=== PATIENT | female | born 1990 | race Caucasian/White ===

== ENCOUNTER 2021-06-14 07:38 | Inpatient (IN) ==
[2021-06-14] MEDS ORDERED: OXYTOCIN 30 UNITS/500 ML BAG IV PRN ×3 (08:44→22:51)
--- NOTE | 2021-06-14 08:47 | History & Physical Report ---
Date of Service June 14, 2021 Assessment & Plan (1) Supervision of normal intrauterine in primigravida: Plan: coming in for IOL - A+, GBS+, RI. - Patient hooked up to monitor. - Pitocin ordered. Will continue to monitor progress. (2) Encounter for induction of labor: (3) Group B streptococcal carriage complicating : Plan: Positive GBS at 36 weeks - Penicillin ordered and will be started for GBS prophylaxis. Admission and Anticipated Discharge Date Admission Date: June 14, 2021 History of Present Illness Chief Complaint: IOL Primary Care Provider: BRUNA PCP at 38 weeks and 5 days confirmed via LMP. Here for induction of labor. Complications with this include GDM (at 28 weeks with glucola test) and CHTN on baby aspirin daily. Has been attending OB appointments regularly. Currently taking baby aspirin, vitamin, ferrous sulfate, docusate sodium. Contractions: No contractions felt by patient. Fluid or blood loss: movement: active Allergies Allergy/AdvReac Type Severity Reaction Status Date / Time Pertussis Vaccines Allergy Hives Verified 06/15/21 04:02 Home Medications Medication Instructions Recorded Confirmed Type aspirin 81 mg tablet 81 mg PO DAILY 06/13/21 06/14/21 History docusate sodium 50 mg capsule 50 mg PO DAILY 06/13/21 06/14/21 History ferrous sulfate 325 mg (65 mg 325 mg PO DAILY 06/13/21 06/14/21 History iron) tablet (Iron (ferrous sulfate)) prenat.vits,joey,psa-rtkh-yrjje 1 tab PO DAILY 06/13/21 06/14/21 History Patient History Medical History White coat syndrome with hypertension Surgical History S/P wisdom tooth extraction Family History Grandfather Diabetes Social History Smoking Status: Never smoker Second Hand Exposure: No; Hx Alcohol Use: No Hx Substance Use: No Preferred Language: Canadian Communication Ability: Effective Family Independence Case Manager Required: No Beliefs That Will Affect Care: None marital status: marital status details: Sudhir (32) [phone] Current Living Situation: Spouse Current Living Situation Comment: lives with spouse, no pets current occupational status: unemployed Other Information That Helps Us Care for You: No Feels Safe at Home: Yes Assistive Devices: None OB History History of one aborted . Review of Systems Denies fever, chills, sweats Denies shortness of breath, difficulty breathing, chest pain, palpitations, chest pressure. Denies breast pain. Denies dysuria. Denies headache or changes in vision. Physical Exam Physical Exam: Dilation: 4.0 Effacement: 70 Station: -3 Baseline: 150's Accelerations present, no decelerations Contractions mild spaced 5 minutes apart. Constitutional: WD/WN, vitals as above well developed and well nourished Respiratory: normal respiratory effort, lungs clear to auscultation Cardiovascular: Rate/Rhythm: regular rate and regular rhythm Heart Sounds: normal S1 and normal S2 Results & Data ([facility]) Vital Signs (Past 12 Hours) Vital Signs Temp Pulse Resp BP 06/14/21 08:07 108 H 137/78 06/14/21 07:55 36.4 C L 114 H 18 152/84 H 06/14/21 07:52 114 H 152/84 H Laboratory Results - A+ - GBS+ - Antibody screen - - HCT/Hgb 36.7/13 - WBC 18.25 - Plt 230 - Rubella Immune - HIV- - HbSAg- Resident Activity Tracking Resident Involvement: Resident Care Provided Care Provided: OB Delivery
[2021-06-14] MEDS ORDERED: PENICILLIN G POTASSIUM 6 MU in DEXTROSE 5% 250 ML IV STA (08:57)
[2021-06-14 09:08] LABS: Hematocrit (blood only) 36.7 % (37-47); Mean Corpuscular Hemoglobin 34.3 pg (25-34); Mean Corpuscular Hgb Conc 35.4 g/dL (32-36); Mean Corpuscular Volume 96.8 fL (80-100); Mean Platelet Volume 9.8 fL (7.4-10.4); Platelet Count 230 K/uL (130-400); RDW Coefficient of Variation 13.6 % (11.5-14.5); RDW Standard Deviation 47.9 fL (36.4-46.3); Red Blood Count 3.79 M/uL (4.2-5.4); White Blood Count 18.25 K/uL (4.8-10.8)
[2021-06-14] MEDS: LACTATED RINGER'S 1,000 ML IV PRN ×3 (09:08→17:28)
[2021-06-14] MEDS: PENICILLIN G POTASSIUM 3 MU in DEXTROSE 5% 100 ML IV PRN ×3 (13:20→21:23)
[2021-06-14] MEDS ORDERED: fentaNYL citrate 100 MCG/2 ML VIAL ONE (13:38)
[2021-06-14] MEDS ORDERED: BUPIVACAINE 0.25% 30 ML VIAL ONE (13:38)
[2021-06-14] MEDS ORDERED: ePHEDrine sulfate 50 MG/ML AMP ONE (13:38)
[2021-06-14] MEDS ORDERED: SODIUM CHLORIDE 0.9% INJ 10 ML VIAL ONE (13:38)
[2021-06-14] MEDS ORDERED: fentaNYL 2MCG/ML ROPIVACAINE 1.25MG/ML 100 ML BAG EPI ONE (13:39)
--- NOTE | 2021-06-14 22:29 | Delivery Summary ---
Vaginal Delivery Summary Date of Service June 14, 2021 Patient was induced for chronic hypertension according to guidelines he is just shy of 39 weeks first baby she was given a Barnes in her cervix the night before and Pitocin was started group B strep prophylaxis was provided Pitocin was started artificial rupture of membranes after adequate penicillin was given patient then progressed to fully dilated and pushed delivering over a first- degree tear with clear fluid there was a loose nuchal cord passed over the baby's head mouth and nares suctioned gentle traction the baby no excessive force live vigorous female cord clamped and cut cord gases obtained cord blood obtained placenta removed with gentle traction IV Pitocin started uterine tone improved first-degree tear repaired with 3-0 Vicryl sponge and instrument counts were correct estimated blood loss 250 mL Vaginal Delivery Summary and 1st Degree LAC [facility] Vaginal Delivery Charge Vaginal Delivery Codes: 24246 global code for the antepartum, delivery, and post- Delivery Type Details: and 1st Degree LAC Procedure Anesthesia type: Epidural Labor Stage Duration Labor - Stage 1 Duration: 2.66
[2021-06-14] MEDS ORDERED: DIPHTHERIA/TETANUS/PERTUSSIS 0.5 ML SYR/VIAL IM ONE (22:51)
[2021-06-14] MEDS ORDERED: HYDROCORTISONE ACETATE 25 MG SUPP PR PRN (22:51)
[2021-06-14] MEDS ORDERED: ACETAMINOPHEN 325 MG TAB PO PRN (22:51)
[2021-06-14] MEDS ORDERED: BENZOCAINE 20% AER SPR 82.5 GM CAN EXT PRN (22:51)
[2021-06-14] MEDS ORDERED: SUPERCREAM 0.870% 15 GM JAR EXT PRN (22:51)
[2021-06-14] MEDS ORDERED: bisacodyL 10 MG SUPP PR PRN (22:51)
[2021-06-14] MEDS ORDERED: oxyCODONE/ACETAMINOPHEN 5mg/325mg TAB PO PRN (22:51)
[2021-06-14 22:54] LABS: Base Excess Cord Arterial Bld -5.3 mEq/L (-9-1.8); CO2 Cord Arterial Blood 60 mmHg (39.1-73.5); HCO3 Cord Arterial Blood 24 mmol/L (19.7-28.5); PO2 Cord Arterial Blood 24 mmHg (4.1-31.7); pH Cord Arterial Blood 7.22 (7.1-7.38)
[2021-06-14 22:55] LABS: Base Excess Cord Venous Blood -3.5 mEq/L (-7.7-1.9); Cord Venous Blood HCO3 20 mmol/L (18.4-26.8); Cord Venous Blood PCO2 34 mmHg (30.4-57.2); Cord Venous Blood PO2 36 mmHg (14.1-43.3); Cord Venous Blood pH 7.39 (7.20-7.44)
[2021-06-14 22:56] LABS: Oxygen Sat Cord Arterial Blood < 60.0 % (<60)
--- NOTE | 2021-06-15 00:01 | Anesthesiology Progress Note ---
Date of Service June 15, 2021 Anesthesia Post Procedure Vital Signs Vital Signs: Temp Pulse Resp BP Pulse Ox 06/14/21 23:54 110 H 133/71 06/14/21 23:39 105 H 127/64 06/14/21 23:23 98 H 18 130/67 06/14/21 23:08 112 H 18 118/65 06/14/21 22:54 99 H 18 119/59 L 06/14/21 22:42 108 H 132/61 06/14/21 22:39 18 06/14/21 22:32 102 H 95 06/14/21 22:27 100 H 96 06/14/21 22:24 100 H 18 135/72 06/14/21 22:22 106 H 97 06/14/21 22:17 106 H 98 06/14/21 22:12 120 H 97 06/14/21 22:07 119 H 96 06/14/21 22:05 116 H 133/58 L 06/14/21 22:02 123 H 97 06/14/21 21:57 102 H 95 06/14/21 21:52 107 H 94 06/14/21 21:47 103 H 97 06/14/21 21:42 151 H 96 06/14/21 21:37 104 H 97 06/14/21 21:34 114 H 143/64 H 06/14/21 21:32 132 H 96 06/14/21 21:28 113 H 88 L 06/14/21 21:27 116 H 95 06/14/21 21:22 154 H 97 06/14/21 21:17 131 H 97 06/14/21 21:12 112 H 97 06/14/21 21:07 148 H 96 06/14/21 21:06 122 H 186/72 H 06/14/21 21:02 142 H 87 L 06/14/21 21:01 36.7 C 18 06/14/21 20:57 118 H 92 06/14/21 20:52 106 H 98 06/14/21 20:49 98 H 144/80 H 06/14/21 20:47 98 H 98 06/14/21 20:42 109 H 99 06/14/21 20:37 106 H 99 06/14/21 20:34 96 H 16 136/76 06/14/21 20:32 104 H 99 06/14/21 20:27 99 H 98 06/14/21 20:22 95 H 98 06/14/21 20:19 97 H 133/74 06/14/21 20:17 98 H 98 06/14/21 20:12 106 H 98 06/14/21 20:07 109 H 98 06/14/21 20:04 93 H 131/77 06/14/21 20:02 102 H 99 06/14/21 19:57 102 H 98 06/14/21 19:52 100 H 98 06/14/21 19:49 99 H 128/75 06/14/21 19:47 96 H 99 06/14/21 19:42 101 H 98 06/14/21 19:37 107 H 99 06/14/21 19:35 105 H 129/81 06/14/21 19:32 118 H 98 06/14/21 19:27 93 H 97 06/14/21 19:22 100 H 98 06/14/21 19:19 93 H 123/60 06/14/21 19:17 99 H 98 06/14/21 19:12 94 H 96 06/14/21 19:07 93 H 98 06/14/21 19:04 112 H 127/57 L 06/14/21 19:02 36.9 C 94 H 18 97 06/14/21 19:01 36.9 C 18 06/14/21 19:00 20 06/14/21 18:57 95 H 97 06/14/21 18:52 94 H 98 06/14/21 18:49 95 H 131/72 06/14/21 18:47 98 H 98 06/14/21 18:42 86 99 06/14/21 18:37 89 99 06/14/21 18:34 95 H 133/72 06/14/21 18:32 88 99 06/14/21 18:30 20 06/14/21 18:27 89 98 06/14/21 18:22 87 98 06/14/21 18:19 80 122/72 06/14/21 18:17 84 98 06/14/21 18:12 83 98 06/14/21 18:07 85 99 06/14/21 18:02 85 100 06/14/21 18:00 18 06/14/21 17:57 90 99 06/14/21 17:52 91 H 99 06/14/21 17:49 87 124/68 06/14/21 17:47 93 H 98 06/14/21 17:42 88 99 06/14/21 17:37 80 99 06/14/21 17:35 82 120/60 06/14/21 17:34 84 123/60 06/14/21 17:32 87 99 06/14/21 17:30 20 06/14/21 17:27 89 98 06/14/21 17:22 93 H 99 06/14/21 17:19 75 119/63 06/14/21 17:17 81 98 06/14/21 17:12 72 97 06/14/21 17:07 74 97 06/14/21 17:04 75 125/70 06/14/21 17:02 78 98 06/14/21 17:00 18 06/14/21 16:57 79 98 06/14/21 16:52 94 H 98 06/14/21 16:49 70 115/58 L 06/14/21 16:47 65 96 06/14/21 16:42 66 95 06/14/21 16:37 63 95 06/14/21 16:34 67 111/61 06/14/21 16:32 65 96 06/14/21 16:30 18 06/14/21 16:27 62 96 06/14/21 16:22 64 96 06/14/21 16:18 69 113/57 L 06/14/21 16:17 69 96 06/14/21 16:14 63 115/58 L 06/14/21 16:12 68 95 06/14/21 16:08 70 114/56 L 06/14/21 16:07 65 96 06/14/21 16:03 76 113/58 L 06/14/21 16:02 75 97 06/14/21 16:00 20 06/14/21 15:58 67 112/59 L 06/14/21 15:57 74 96 06/14/21 15:53 75 111/59 L 06/14/21 15:52 73 96 06/14/21 15:50 77 116/61 06/14/21 15:47 78 97 06/14/21 15:44 68 108/57 L 06/14/21 15:42 79 98 06/14/21 15:39 82 115/68 06/14/21 15:37 78 97 20/ 15:34 88 108/59 L 06/14/21 15:32 69 97 06/14/ 15:30 20 20/ 15:28 73 110/59 L 06/14/ 15:27 72 97 20/21 15:24 81 114/62 20/21 15:22 80 97 20 15:18 79 112/61 20/ 15:17 81 98 06/14/21 15:12 75 97 20/ 15:11 82 110/61 20/21 15:10 81 111/61 20/21 15:07 71 110/60 98 06/14/21 15:06 37.0 C 75 18 111/66 06/14/21 15:04 73 116/63 20/21 15:02 78 97 06/14/21 15:01 68 114/60 20/21 15:00 68 115/61 20/ 14:57 74 118/68 97 06/14/21 14:55 73 112/63 20/21 14:54 70 114/64 20/21 14:52 92 H 97 06/14/21 14:51 76 112/62 20/21 14:49 76 112/64 20/ 14:47 71 117/64 97 20/21 14:45 80 119/65 20/21 14:43 78 18 120/63 20/21 14:42 71 117/62 97 20/21 14:40 72 18 129/66 20/21 14:37 90 18 123/68 97 20/21 14:35 81 18 120/65 20/21 14:33 81 18 121/63 20/21 14:32 78 96 20/21 14:31 81 18 120/66 20/21 14:29 83 18 123/65 20/21 14:28 81 18 117/64 20/21 14:27 80 97 20/21 14:25 84 18 123/64 20/21 14:24 83 18 121/65 20/21 14:22 81 18 128/83 98 20/ 14:19 85 18 145/87 H 06/14/21 14:17 74 100 06/14/21 14:12 91 H 98 06/14/21 14:07 83 99 06/14/21 14:05 99 H 140/86 06/14/21 14:02 88 97 06/14/21 13:57 83 98 06/14/21 13:52 96 H 99 06/14/21 13:47 91 H 100 06/14/21 12:43 36.7 C 106 H 20 146/82 H 06/14/21 12:42 20 06/14/21 11:46 97 H 18 138/84 06/14/21 10:54 90 119/65 06/14/21 10:52 36.9 C 20 06/14/21 10:23 93 H 114/60 06/14/21 09:08 117 H 136/87 06/14/21 08:07 108 H 137/78 06/14/21 07:55 36.4 C L 114 H 18 152/84 H 06/14/21 07:52 114 H 152/84 H Notes Mental Status: alert / awake / arousable Nausea / Vomiting: adequately controlled Pain: adequately controlled Airway Patency, RR, SpO2: stable & adequate BP & HR: stable & adequate Hydration State: stable & adequate Neuraxial Anesthesia: was administered and sensory block is resolving Anesthetic Complications: no major complications apparent and Pt Satisfied with anesthetic care
--- NOTE | 2021-06-15 00:02 | Anesthesiology Consultation ---
Date of Service June 15, 2021 Assessment & Plan (1) Encounter for pre-operative examination: Chart Review Chart Review: Patient NOT seen in Pre Admission Testing and Acceptable Risk for Labor Epidural Consults Requested none ASA ASA2 Proposed Anesthesia Anesthesia Type: CSE Risk / Benefits Reviewed With: PT / POA / Parent / Guardian, Accepts Plan and Informed Consent Obtained History Height/Weight Height: 5 ft 3 in Weight: 71.668 kg Allergies Allergy/AdvReac Type Severity Reaction Status Date / Time No Known Allergies Allergy Verified 05/23/21 13:00 Medications Home Medications Medication Instructions Recorded Confirmed Last Taken aspirin 81 mg tablet 81 mg PO DAILY 06/13/21 06/14/21 06/13/21 08:00 docusate sodium 50 mg capsule 50 mg PO DAILY 06/13/21 06/14/21 06/13/21 08:00 ferrous sulfate 325 mg (65 mg 325 mg PO DAILY 06/13/21 06/14/21 06/13/21 08:00 iron) tablet (Iron (ferrous sulfate)) prenat.vits,joey,[id number] 1 tab PO DAILY 06/13/21 06/14/21 06/13/21 08:00 Past Medical History Medical History White coat syndrome with hypertension Exercise / Class Metabolic Activity II 4-5 Yardwork/Stairs/Walk up hill Past Family History Family History Grandfather Diabetes Past Surgical History Surgical History S/P wisdom tooth extraction Past Anesthesia History No Hx of Anesthesia Complications and No Family Hx of Anesthesia Complications History of PONV No Hx of PONV and No Hx of Motion Sickness Social History Smoking Status: Never smoker Hx Alcohol Use: No Hx Substance Use: No substance use type: does not use Physical Exam Vital Signs Last Vital Signs Temp 36.7 C 06/14/21 21:01 Pulse 110 H 06/14/21 23:54 Resp 18 06/14/21 23:23 BP 133/71 06/14/21 23:54 Pulse Ox 95 06/14/21 22:32 ENMT Mouth: no dentition abnormality Thyromental Distance: > or= 3.5 Finger Breadths Mallampati Class: II Neck normal visual inspection Respiratory normal respiratory effort Auscultation: lungs clear to auscultation bilaterally Cardiovascular Rate/Rhythm: regular rate and regular rhythm Psychiatric Orientation: alert Testing Laboratory Results 06/14/21 08:58
--- NOTE | 2021-06-15 06:05 | Obstetrical Progress Note ---
Date of Service <Alberto Villalobos DO - Last Filed: 06/15/21 07:24> June 15, 2021 Assessment & Plan <Alberto Villalobos DO - Last Filed: 06/15/21 07:24> (1) Encounter for care and examination after delivery: PPD1 - A+, GBS+, RI - Received penicillin for GBS prior to delivery - Vitals WNL. - Encourage - Continue to monitor until patient ready to leave. (2) Gestational diabetes mellitus (GDM) affecting , antepartum: (3) Chronic hypertension affecting : (4) Group B streptococcal carriage complicating : <Jeannie Bojorquez MD, FACOG - Last Filed: 06/15/21 07:30> (1) Encounter for care and examination after delivery: (2) Gestational diabetes mellitus (GDM) affecting , antepartum: (3) Chronic hypertension affecting : (4) Group B streptococcal carriage complicating : Subjective <Alberto Villalobos DO - Last Filed: 06/15/21 07:24> Ambulation: ambulating normally Voiding: no voiding problems Passing Gas:: Yes Diet Tolerance:: regular diet Lochia:: Small Feeding Type:: breast feeding Current Pain Level(1-10): 2 (from stitches) Review of Systems Denies fever, chills, sweats Denies shortness of breath, difficulty breathing, chest pain, palpitations, chest pressure. Denies breast pain. Denies dysuria. Denies headache or changes in vision Physical Exam <Alberto Villalobos DO - Last Filed: 06/15/21 07:24> General: Alert, oriented. No acute distress. Cardiac: Regular rate and rhythm, no murmurs/rubs/gallops. Respiratory: Clear to auscultation bilaterally a/p, no wheezes/rales/rhonchi. No increased work of breathing. Symmetrical chest rise. No respiratory distress. Abdomen: Soft, nontender, nondistended. Bowel sounds present. Uterus: Uterine fundus firm, palpable 1 cm below umbilicus. Lower Extremities: No lower extremity edema or swelling. No deep calf pain. Landy's negative bilaterally Results & Data ([facility]) <Alberto Villalobos DO - Last Filed: 06/15/21 07:24> Vital Signs (Past 12 Hours) Vital Signs Temp Pulse Pulse Resp BP BP Pulse Ox 06/15/21 03:35 36.9 C 94 H 18 130/82 97 06/15/21 01:00 36.9 C 94 H 18 130/82 06/15/21 00:23 36.3 C L 99 H 18 128/58 L 06/15/21 00:09 112 H 127/59 L 06/14/21 23:54 110 H 18 133/71 06/14/21 23:39 105 H 127/64 06/14/21 23:23 98 H 18 130/67 06/14/21 23:08 112 H 18 118/65 06/14/21 22:54 99 H 18 119/59 L 06/14/21 22:42 108 H 132/61 06/14/21 22:39 18 06/14/21 22:32 102 H 95 06/14/21 22:27 100 H 96 06/14/21 22:24 100 H 18 135/72 06/14/21 22:22 106 H 97 06/14/21 22:17 106 H 98 06/14/21 22:12 120 H 97 06/14/21 22:07 119 H 96 06/14/21 22:05 116 H 133/58 L 06/14/21 22:02 123 H 97 06/14/21 21:57 102 H 95 06/14/21 21:52 107 H 94 06/14/21 21:47 103 H 97 06/14/21 21:42 151 H 96 06/14/21 21:37 104 H 97 06/14/21 21:34 114 H 143/64 H 06/14/21 21:32 132 H 96 06/14/21 21:28 113 H 88 L 06/14/21 21:27 116 H 95 06/14/21 21:22 154 H 97 06/14/21 21:17 131 H 97 06/14/21 21:12 112 H 97 06/14/21 21:07 148 H 96 06/14/21 21:06 122 H 186/72 H 06/14/21 21:02 142 H 87 L 06/14/21 21:01 36.7 C 18 06/14/21 20:57 118 H 92 06/14/21 20:52 106 H 98 06/14/21 20:49 98 H 144/80 H 21 20:47 98 H 98 06/14/21 20:42 109 H 99 06/14/21 20:37 106 H 99 06/14/21 20:34 96 H 16 136/76 06/14/21 20:32 104 H 99 06/14/21 20:27 99 H 98 06/14/21 20:22 95 H 98 06/14/21 20:19 97 H 133/74 06/14/21 20:17 98 H 98 06/14/21 20:12 106 H 98 06/14/21 20:07 109 H 98 06/14/21 20:04 93 H 131/77 06/14/21 20:02 102 H 99 06/14/21 19:57 102 H 98 06/14/21 19:52 100 H 98 06/14/21 19:49 99 H 128/75 06/14/21 19:47 96 H 99 06/14/21 19:42 101 H 98 06/14/21 19:37 107 H 99 06/14/21 19:35 105 H 129/81 06/14/21 19:32 118 H 98 06/14/21 19:27 93 H 97 06/14/21 19:22 100 H 98 06/14/21 19:19 93 H 123/60 06/14/21 19:17 99 H 98 06/14/21 19:12 94 H 96 06/14/21 19:07 93 H 98 06/14/21 19:04 112 H 127/57 L 06/14/21 19:02 36.9 C 94 H 18 97 06/14/21 19:01 36.9 C 18 06/14/21 19:00 20 06/14/21 18:57 95 H 97 06/14/21 18:52 94 H 98 06/14/21 18:49 95 H 131/72 06/14/21 18:47 98 H 98 06/14/21 18:42 86 99 21 18:37 89 99 06/14/21 18:34 95 H 133/72 06/14/21 18:32 88 99 20 18:30 20 06/14/21 18:27 89 98 06/14/21 18:22 87 98 06/14/21 18:19 80 122/72 06/14/21 18:17 84 98 06/14/21 18:12 83 98 06/14/21 18:07 85 99 <Jeannie Bojorquez MD, FACOG - Last Filed: 06/15/21 07:30> Co-Signing Physician Notes Resident Physician Supervision Note: I was present with Dr. Cash during the history and exam. I discussed the case with the resident and agree with the findings and plan as documented in the note. Any exceptions or clarifications are listed here: [None] Documented By: Jeannie Bojorquez MD, FACOG Resident Activity Tracking <Alberto Villalobos DO - Last Filed: 06/15/21 07:24> Resident Involvement: Resident Care Provided Care Provided: OB Delivery
[2021-06-15] MEDS: PRENATAL VITAMIN 1 TAB PO SCH (08:10)
[2021-06-15] MEDS: DOCUSATE SODIUM 100 MG CAP PO SCH ×2 (08:10→20:04)
[2021-06-15] MEDS: IBUPROFEN 600 MG TAB PO PRN ×3 (08:14→20:04)
--- NOTE | 2021-06-15 09:05 | Obstetrical Progress Note ---
Date of Service June 15, 2021 Assessment & Plan Admission and Anticipated Discharge Date Admission Date: June 14, 2021 Subjective Called to patient room to eval perineum. Patient delivered via last night, and during pericare this morning RN noticed purplish swelling of left labia. Patient is able to ambulate, rates pain 1-2/10. On exam, left labia majora is purple and swollen, approx 2-3cm in size. Right is not swollen. There is no extension of bruising into the thighs. Does not appear to extend into the vagina. Discussed with patient - this looks like labial swelling, will use cold compre ss/ice packs, will check H/H now and in 6h. Results & Data ([facility]) Vital Signs (Past 12 Hours) Vital Signs Temp Pulse Pulse Resp BP BP Pulse Ox 06/15/21 03:35 36.9 C 94 H 18 130/82 97 06/15/21 01:00 36.9 C 94 H 18 130/82 06/15/21 00:23 36.3 C L 99 H 18 128/58 L 06/15/21 00:09 112 H 127/59 L 06/14/21 23:54 110 H 18 133/71 06/14/21 23:39 105 H 127/64 06/14/21 23:23 98 H 18 130/67 06/14/21 23:08 112 H 18 118/65 06/14/21 22:54 99 H 18 119/59 L 06/14/21 22:42 108 H 132/61 06/14/21 22:39 18 06/14/21 22:32 102 H 95 06/14/21 22:27 100 H 96 06/14/21 22:24 100 H 18 135/72 06/14/21 22:22 106 H 97 06/14/21 22:17 106 H 98 06/14/21 22:12 120 H 97 06/14/21 22:07 119 H 96 06/14/21 22:05 116 H 133/58 L 06/14/21 22:02 123 H 97 06/14/21 21:57 102 H 95 06/14/21 21:52 107 H 94 06/14/21 21:47 103 H 97 06/14/21 21:42 151 H 96 06/14/21 21:37 104 H 97 06/14/21 21:34 114 H 143/64 H 06/14/21 21:32 132 H 96 06/14/21 21:28 113 H 88 L 06/14/21 21:27 116 H 95 06/14/21 21:22 154 H 97 06/14/21 21:17 131 H 97 06/14/21 21:12 112 H 97 06/14/21 21:07 148 H 96 06/14/21 21:06 122 H 186/72 H 06/14/21 21:02 142 H 87 L 06/14/21 21:01 36.7 C 18 PG Care Time/CCT Total # of Minutes Spent Total Time Spent with Patient: Total time spent is greater than 50% in coordination of care (as documented) at patient's floor/unit and/or counseling patient: Coding Level of Care Code None
[2021-06-15 09:21] LABS: Hematocrit (blood only) 32.8 % (37-47); Hemoglobin 11.5 g/dL (12.0-16.0)
[2021-06-15 15:07] LABS: Hematocrit (blood only) 30.6 % (37-47); Hemoglobin 10.5 g/dL (12.0-16.0)
[2021-06-15] MEDS ORDERED: bisacodyL 5 MG TABEC PO SCH (20:00)
[2021-06-16 00:44] VITALS: TEMP 98.2
[2021-06-16] MEDS: IBUPROFEN 600 MG TAB PO PRN ×2 (02:41→11:48)
[2021-06-16 06:22] LABS: Hematocrit (blood only) 30.6 % (37-47); Hemoglobin 10.5 g/dL (12.0-16.0)
[2021-06-16] MEDS: DOCUSATE SODIUM 100 MG CAP PO SCH (08:00)
[2021-06-16] MEDS: PRENATAL VITAMIN 1 TAB PO SCH (08:00)
--- NOTE | 2021-06-16 08:02 | Obstetrical Progress Note ---
Date of Service June 16, 2021 Assessment & Plan (1) Supervision of normal intrauterine in primigravida: Doing well PPD2. Labia stable. OK for DC home. Reviewed instructions. Followup 6w in office. Subjective Ambulation: ambulating normally Voiding: no voiding problems Diet Tolerance:: regular diet Lochia:: Moderate Review of Systems All systems reviewed & are unremarkable except as noted in HPI & below Physical Exam Labia same as yesterday - not worse. Left is swollen and bruised. No extension of bruising. Constitutional WD/WN, vitals as above no acute distress Respiratory normal respiratory effort Cardiovascular Rate/Rhythm: regular rate and regular rhythm Gastrointestinal (Abdomen) Inspection/Auscultation: abdomen normal to inspection; abdomen not distended Percussion/Palpation: abdomen soft Genitourinary OB Exam Abdomen: + fundal height Fundus: + firm; not tender Results & Data ([facility]) Vital Signs (Past 12 Hours) Vital Signs Temp Pulse Resp BP 06/15/21 23:35 36.8 C 78 16 114/74
[2021-06-16 09:15] VITALS: BP 116/73; PULSE 75; O2SAT 98
--- NOTE | 2021-06-27 11:50 | Coding Query ---
CODING QUERY To promote full compliance with coding requirements relating to patient care, provider participation is requested in all cases of construction administrator uncertainty. Please assist us with the question(s) below: Coding Question(s): 06/16 progress note mentions labial swelling post delivery. Please document diagnosis , if applicable for the swelling post delivery. Thanks for your help! Dhruv Michael [facility] Physician's Response(s): Labial swelling is pretty common post delivery, I do not have a diagnosis for this Principal Diagnosis: "that condition established after study, to be chiefly responsible for occasioning the admission of the patient to the hospital for care." Co-Existing Principal Diagnosis: "when two or more diagnoses equally meet the criteria for principal diagnosis as determined by the circumstances of admission, diagnostic work up, and/or therapy provided, and the Alphabetic Index, Tabular List, or another coding guideline does not provide sequencing direction, any one of the diagnoses may be sequenced first." "When the physician has documented what appears to be a current diagnosis in the body of the record, but has not included the diagnosis in the final diagnostic statement, the physician should be asked whether the diagnosis should be added." (Source Coding [facility] 2 QTR90. p3-4) [facility]
== END 2021-06-16 15:45 | disposition home or self-care (01) | DRG 807 ==
LOC: 4S1 07:38 → 4S2 06-15 01:28
DX: Z37.0 Single live birth; O24.429 Gestational diabetes mellitus in childbirth, unspecified control; O99.824 Streptococcus B carrier state complicating childbirth; O16.4 Unspecified maternal hypertension, complicating childbirth; Z3A.38 38 weeks gestation of pregnancy; Z79.82 Long term (current) use of aspirin; O69.81X0 Labor and delivery complicated by cord around neck, without compression, not applicable or unspecified; O70.0 First degree perineal laceration during delivery; Z88.7 Allergy status to serum and vaccine

== ENCOUNTER 2024-09-27 07:30 | Inpatient (IN) ==
[2024-09-27] MEDS ORDERED: LIDOCAINE 1% LOCAL 20 ML VIAL INFIL PRN (08:42)
[2024-09-27] MEDS ORDERED: OXYTOCIN 30 UNITS/NSS 30 UNITS/500 ML BAG IV PRN (08:42)
--- NOTE | 2024-09-27 08:58 | History & Physical Report ---
Date of Service September 27, 2024 Assessment & Plan (1) Chronic hypertension affecting : (2) Gestational diabetes mellitus (GDM) affecting , antepartum: Plan 33 yo at 39 wga presents for iol cHTN VSS Fetus cat 1 Labor - 35cc shah placed, pt tolerated well. Pit to start A1GDM - BG q4 GBS neg epidural prn Admission and Anticipated Discharge Date Admission Date: September 27, 2024 History of Present Illness Chief Complaint: IOL Primary Care Provider: Bianca Roca MD 33 yo at 39 wga presents for IOL for cHTN no meds. +FM; denies ctx, LOF, VB PNI: cHTN A1GDM Past company secretary hx: G1 2019 SAB G2 2020 G3 current denies hx stis Allergies Allergy/AdvReac Type Severity Reaction Status Date / Time Pertussis Vaccines Allergy Severe Anaphylaxis Verified 09/26/24 15:02 Home Medications Medication Instructions Recorded Confirmed Type prenat.vits,joey,umg-[id number]-apidn 1 tab PO DAILY 06/13/21 09/27/24 History doxylamine succinate [Unisom 25 mg PO DAILY 02/17/24 09/27/24 History (doxylamine)] docusate sodium [Colace] 100 mg PO DAILY 03/02/24 09/27/24 History famotidine [Pepcid] 1 tab PO DAILY PRN Constipation 03/02/24 09/27/24 History acetone (urine) test (Ketone Urine #50 ea 03/11/24 09/26/24 Rx Test strips) blood sugar diagnostic (OneTouch #150 ea 03/11/24 09/26/24 Rx Verio test strips) blood-glucose meter (OneTouch #1 ea 03/11/24 09/26/24 Rx Verio Reflect Meter) lancets 33 gauge (OneTouch Delica #150 ea 03/11/24 09/26/24 Rx Plus Lancet) breast pump #1 ea 06/15/24 09/26/24 Rx aspirin 81 mg capsule 81 mg PO DAILY 09/23/24 09/27/24 History polyethylene glycol 3350 17 gram 17 g PO DAILY 09/23/24 09/27/24 History oral powder packet (Miralax) Patient History Medical History (Updated 09/23/24 @ 08:23 by Nisha Huston RN) Eczema H/O acne White coat syndrome with hypertension Surgical History S/P wisdom tooth extraction Family History Grandfather Diabetes Social History (Updated 02/17/24 @ 14:21 by Elvi Lopez, CHIDI) Smoking Status: Never smoker Second Hand Exposure: No; Do You Dip or Chew Tobacco: No; Hx Alcohol Use: No Hx Substance Use: No Preferred Language: Yoruba Communication Ability: Effective Vehicle Safety Inspector Required: No Beliefs That Will Affect Care: None marital status: marital status details: Sudhir Mullen (34) [phone] Current Living Situation: Spouse and Family Current Living Situation Comment: lives with spouse and child, no pets current occupational status: employed current occupation: physical therapist Other Information That Helps Us Care for You: No Feels Safe at Home: Yes Safety Concerns: Feels Safe At This Time Assistive Devices: None Physical Exam Genitourinary: OB Exam Abdomen: + vertex and + estimated weight (6-7) Manual OB Exam: + cervical dilation 2 cm, + cervical effacement 50% and + station -2 OB Exam Monitor Tracing: + external FHT monitor used, + external uterine monitor used and + category I (150/mod/+accel/-decel) Results & Data Vital Signs (Past 12 Hours) Vital Signs Temp Pulse Resp BP 09/27/24 08:13 98.4 F 09/27/24 07:44 123 H 143/88 H 09/27/24 07:43 18 Laboratory Results OB Labs: Blood Type A Positive 03/03/24 Antibody Screen NEGATIVE 03/03/24 Hgb 12.3 g/dl (12.0-16.0) 07/13/24 Hct 35.2 % (37.0-47.0) L 07/13/24 MCV 93.0 fL (80.0-100.0) 03/03/24 Plt Count 307 K/uL (130-400) 03/03/24 VZV IgG Antibody 446.30 index 01/06/23 Rubella IgG Antibody Immune (Immune) 03/03/24 RPR Nonreactive (Nonreactive) 03/03/24 Treponema pallidum Ab Negative (Negative) 07/13/24 Hep Bs Antigen NON-REACTIVE (NON-REACTIVE) 03/03/24 Hepatitis C Ab (EIA) NON-REACTIVE (NON-REACTIVE) 03/03/24 HIV (1&2) Ag & Ab Conf NON-REACTIVE (NON-REACTIVE) 03/03/24 Maternal Serum AFP 37.5 ng/mL 04/20/24 OB Optional Labs: Chlamydia trachomatis RNA Not Detected (NotDetected) 03/02/24 Neisseria gonorrhoeae RNA Not Detected (NotDetected) 03/02/24 Alpha Fetoprotein Triple Screen SEE NOTE 04/20/24 Labs Reviewed: CF/SMA- 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
[2024-09-27 09:01] LABS: Hematocrit (blood only) 37.6 % (37.0-47.0); Hemoglobin 13.2 g/dl (12.0-16.0); Mean Corpuscular Hemoglobin 34.4 pg (25.0-34.0); Mean Corpuscular Hgb Conc 35.1 g/dL (32.0-36.0); Mean Corpuscular Volume 97.9 fL (80.0-100.0); Platelet Count 230 K/uL (130-400); RDW Coefficient of Variation 13.1 % (11.5-14.5); RDW Standard Deviation 47.2 fL (36.4-46.3); Red Blood Count 3.84 M/uL (4.20-5.40); White Blood Count 15.86 K/ul (4.8-10.8)
[2024-09-27] MEDS: LACTATED RINGER'S 1,000 ML IV SCH (09:35)
[2024-09-27] MEDS: OXYTOCIN 30 UNITS/NSS 30 UNITS/500 ML BAG IV PRN (09:38)
[2024-09-27] MEDS: FAMOTIDINE 20 MG TAB PO SCH (09:54)
[2024-09-27] MEDS ORDERED: BUPIVACAINE 0.25% PF 30 ML VIAL EPI PRN (13:24)
[2024-09-27] MEDS ORDERED: fentaNYL citrate PF 100 MCG/2 ML VIAL EPI PRN (13:24)
[2024-09-27] MEDS ORDERED: fentANYL 2 MCG/ML BUPIVacaine 0.125%-NSS 100ML BAG EPI PRN (13:24)
[2024-09-27] MEDS ORDERED: NALBUPHINE HCL INJ 10 MG/ML AMP IV PRN (13:24)
[2024-09-27] MEDS ORDERED: LIDOCAINE 2% MPF LOCAL 5 ML VIAL EPI PRN (13:24)
[2024-09-27] MEDS ORDERED: NALOXONE HCL 1 MG in SODIUM CHLORIDE 0.9% 1,000 ML IV PRN (13:24)
[2024-09-27] MEDS ORDERED: diphenhydrAMINE 50 MG/ML VIAL IV PRN (13:24)
[2024-09-27] MEDS ORDERED: SODIUM CHLORIDE 0.9% PF INJ 10 ML VIAL EPI PRN (13:24)
[2024-09-27] MEDS ORDERED: ePHEDrine sulfate 50 MG/ML AMP IV PRN (13:24)
[2024-09-27] MEDS ORDERED: ROPIVACAINE 0.5% PF 5 MG/ML 20 ML VIAL EPI PRN (13:24)
[2024-09-27] MEDS ORDERED: NALOXONE HCL 0.4 MG/1 ML VIAL/CARP IV PRN (13:24)
[2024-09-27] MEDS ORDERED: ONDANSETRON INJ 2 MG/ML 2 ML VIAL IV PRN (13:24)
--- NOTE | 2024-09-27 13:25 | Anesthesiology Consultation ---
Date of Service September 27, 2024 Assessment & Plan (1) Encounter for pre-operative examination: Chart Review Chart Review: Patient NOT seen in Pre Admission Testing and Acceptable Risk for Labor Epidural Consults Requested none History Height/Weight Height: 5 ft 2 in Weight: 66.723 kg Allergies Allergy/AdvReac Type Severity Reaction Status Date / Time Pertussis Vaccines Allergy Severe Anaphylaxis Verified 09/26/24 15:02 Medications Home Medications Medication Instructions Recorded Confirmed Last Taken prenat.vits,joey,dpi-rodv-zjgdf 1 tab PO DAILY 06/13/21 09/27/24 09/25/24 20:00 doxylamine succinate [Unisom 25 mg PO DAILY 02/17/24 09/27/24 09/26/24 19:00 (doxylamine)] docusate sodium [Colace] 100 mg PO DAILY 03/02/24 09/27/24 09/26/24 08:00 famotidine [Pepcid] 1 tab PO DAILY PRN Constipation 03/02/24 09/27/24 09/26/24 08:00 acetone (urine) test (Ketone Urine #50 ea 03/11/24 09/26/24 Unknown Test strips) blood sugar diagnostic (OneTouch #150 ea 03/11/24 09/26/24 Unknown Verio test strips) blood-glucose meter (OneTouch #1 ea 03/11/24 09/26/24 Unknown Verio Reflect Meter) lancets 33 gauge (OneTouch Delica #150 ea 03/11/24 09/26/24 Unknown Plus Lancet) breast pump #1 ea 06/15/24 09/26/24 Unknown aspirin 81 mg capsule 81 mg PO DAILY 09/23/24 09/27/24 09/26/24 08:00 polyethylene glycol 3350 17 gram 17 g PO DAILY 09/23/24 09/27/24 09/25/24 20:00 oral powder packet (Miralax) Active Medications Generic Name Dose Route Start Last Admin Trade Name Freq PRN Reason Stop Dose Admin Famotidine 20 mg 09/27/24 09:15 09/27/24 09:54 Famotidine 20 Mg Tab PO 10/27/24 09:14 20 mg BID MARGUERITE Administration Oxytocin 30 units in 500 mls @ 14 mls/hr 09/27/24 08:42 09/27/24 13:00 Pitocin 30 Units/Nss IV 09/29/24 08:41 0.84 units/hr .Q24H PRN 14 mls/hr Labor Induction/Augmentation Titration Protocol 0.84 UNITS/HR Lactated Ringer's 1,000 mls @ 50 mls/hr 09/27/24 10:30 09/27/24 09:35 Lr IV 09/28/24 10:29 50 mls/hr .Q20H MARGUERITE Administration Past Medical History Medical History (Updated 09/27/24 @ 13:25 by Isauro Carlisle MD) Encounter for pre-operative examination Eczema H/O acne White coat syndrome with hypertension Exercise / Class Metabolic Activity II 4-5 Yardwork/Stairs/Walk up hill Past Family History Family History Grandfather Diabetes Past Surgical History Surgical History S/P wisdom tooth extraction Social History Smoking Status: Never smoker Do You Dip or Chew Tobacco: No Hx Alcohol Use: No Hx Substance Use: No substance use type: does not use Physical Exam Vital Signs Last Vital Signs Temp 36.4 C L 09/27/24 11:02 Pulse 83 09/27/24 14:20 Resp 16 09/27/24 12:00 BP 132/68 09/27/24 14:20 Pulse Ox 98 09/27/24 14:20 Testing Laboratory Results 09/27/24 08:31 09/27/24 09/27/24 13:03 09:26 POC Glucose 73 109 H
[2024-09-27] MEDS: LIDOCAINE 2%/EPINEPHRINE 1:200,000 20 ML PF ONE (14:21)
[2024-09-27] MEDS: BUPIVACAINE 0.25% PF 30 ML VIAL ONE (14:21)
[2024-09-27] MEDS: fentaNYL citrate PF 100 MCG/2 ML VIAL ONE (14:21)
[2024-09-27] MEDS: fentANYL 2 MCG/ML BUPIVacaine 0.125%-NSS 100ML BAG ONE (14:22)
--- NOTE | 2024-09-27 15:00 | Labor Progress Brief Note ---
Date of Service September 27, 2024 Subjective comfortable w/ epidural Assessment & Plan (1) Chronic hypertension affecting : (2) Gestational diabetes mellitus (GDM) affecting , antepartum: Plan 33 yo at 39 wga presents for iol cHTN VSS Fetus cat 1 Labor - s/p arom, continue pitocin A1GDM - BG q4 GBS neg epidural in place Admission and Anticipated Discharge Date Admission Date: September 27, 2024 Physical Exam Genitourinary: Manual OB Exam: + cervical dilation 4 cm, + cervical effacement 50%, + station -2 and + amniotic fluid (arom clear) OB Exam Monitor Tracing: + external FHT monitor used, + external uterine monitor used (q3-4) and + category I (145-150/mod/+accel/-decel) Results & Data Vital Signs (Past 12 Hours) Vital Signs Temp Pulse Resp BP Pulse Ox 09/27/24 14:55 81 97 09/27/24 14:50 98.1 F 80 98/54 L 96 09/27/24 14:47 63 93 09/27/24 14:45 60 96 09/27/24 14:41 98 H 124/70 09/27/24 14:40 91 H 96 09/27/24 14:35 83 18 96 09/27/24 14:34 94 H 130/70 09/27/24 14:32 94 H 130/70 09/27/24 14:30 99 H 130/65 97 09/27/24 14:29 16 09/27/24 14:29 16 09/27/24 14:28 105 H 129/76 09/27/24 14:26 103 H 132/70 09/27/24 14:25 100 H 16 97 09/27/24 14:24 97 H 121/71 09/27/24 14:22 91 H 139/76 09/27/24 14:20 83 132/68 98 09/27/24 14:18 99 H 147/69 H 09/27/24 14:15 101 H 99 09/27/24 14:10 93 H 100 09/27/24 14:05 100 09/27/24 14:05 93 H 09/27/24 14:05 95 H 156/91 H 09/27/24 13:05 92 H 130/79 09/27/24 12:17 90 115/60 09/27/24 12:00 16 12/03/24 12:00 16 09/27/24 11:18 93 H 121/63 09/27/24 11:02 20 09/27/24 11:02 97.5 F L 20 09/27/24 10:41 91 H 144/77 H 09/27/24 09:40 122 H 133/85 09/27/24 08:13 98.4 F 09/27/24 07:44 123 H 143/88 H 09/27/24 07:43 18 Coding Level of Care Code None Diagnoses Chronic hypertension affecting O10.919 Gestational diabetes mellitus (GDM) affecting , antepartum O24.419
[2024-09-27] MEDS ORDERED: BENZOCAINE 20% SPRY 85 APPLN/85 GM CAN EXT PRN (18:26)
[2024-09-27] MEDS ORDERED: DIPHTHER/TETAN/PERTUS Vaccine (Tdap, Adol/Adult) 0.5mL IM ONE (18:26)
[2024-09-27] MEDS ORDERED: bisacodyL 10 MG SUPP PR PRN (18:26)
[2024-09-27] MEDS ORDERED: HYDROCORTISONE ACETATE 25 MG SUPP PR PRN (18:26)
[2024-09-27] MEDS ORDERED: ACETAMINOPHEN 325 MG TAB PO PRN (18:26)
--- NOTE | 2024-09-27 18:26 | Delivery Summary ---
Vaginal Delivery Summary Date of Service September 27, 2024 Vaginal Delivery Summary [facility] PREOPERATIVE DIAGNOSIS: 1. Single intrauterine at 39 wga 2. Chronic hypertension without medications 3. A1GDM POSTOPERATIVE DIAGNOSIS: 1. Single intrauterine at 39 wga 2. Chronic hypertension without medications 3. A1GDM 4. Accessory placenta lobe 5. Delivered PROCEDURE: 1. Normal spontaneous vaginal delivery. SURGEON: Shadia Bhat MD ANESTHESIA: Epidural. QUANTITATIVE BLOOD LOSS: 417 mL FLUIDS: Continuous LR. URINE OUTPUT: None. COMPLICATIONS: None. CONDITION: Stable. INDICATIONS: 33yo at 39 wga presented for iol for chronic hypertension without medication. Induction was begun with shah bulb and pitocin. Following bulb expulsion, pitocin was titrated. She received an epidural for pain control. She underwent arom and progressed to complete and desired to push. FINDINGS: A viable female , weight pending with Apgars of 8 and 9 at 1 and 5 minutes respectively. SPECIMEN: Cord blood OPERATIVE REPORT: The patient progressed to 10 cm, 100% effaced and +2 station, pushed over intact perineum with anesthesia to deliver a viable female , weight and Apgars as above. Head of delivered in FRITZ position. Nuchal cord was reduced. Body and shoulders were delivered without difficulty. was delivered to maternal abdomen and nursing staff. Delayed cord clamping was performed for 60 seconds. Cord was clamped and cut. Cord blood was obtained. Placenta delivered spontaneously intact with 3-vessel cord with apparent accessory lobe. IV oxytocin and fundal massage were given for excellent hemostasis. Vagina, cervix, perineum, and placenta were inspected. No lacerations were noted. Sponge and needle counts correct x2. No sponges were left behind. Mother and stable in immediate period. [facility] Vaginal Delivery Charge Vaginal Delivery Codes: 09726 global code for the antepartum, delivery, and post- Delivery Type Details: [facility]
[2024-09-27] MEDS: TERBUTALINE SULFATE 1 MG/ML VIAL ONE (18:35)
--- NOTE | 2024-09-27 19:07 | Anesthesia Procedure Note ---
Date of Service September 27, 2024 Anesthesia Post Epidural Note Vital Signs Vital Signs: Temp Pulse Resp BP Pulse Ox 36.7 C 69 18 122/69 98 09/27/24 14:50 09/27/24 18:58 09/27/24 18:58 09/27/24 18:58 09/27/24 18:05 Notes Mental Status: alert / awake / arousable and participated in evaluation Patient Amnestic to Procedure: No Nausea / Vomiting: adequately controlled Pain: adequately controlled Airway Patency, RR, SpO2: stable & adequate BP & HR: stable & adequate Hydration State: stable & adequate Neuraxial Anesthesia: was administered and sensory block is resolving Anesthetic Complications: no major complications apparent and Pt Satisfied with anesthetic care Epidural: Removed without complications and With tip intact
[2024-09-27] MEDS: SODIUM CHLORIDE 0.9% PF INJ 10 ML VIAL EPI STA (20:14)
[2024-09-27] MEDS: BUPIVACAINE 0.25% PF 30 ML VIAL EPI STA (20:14)
[2024-09-27] MEDS: SODIUM CHLORIDE 0.9% PF INJ 10 ML VIAL ONE (20:14)
[2024-09-27] MEDS: LIDOCAINE 2%/EPINEPHRINE 1:200,000 20 ML PF EPI STA (20:14)
[2024-09-27] MEDS: ePHEDrine sulfate 50 MG/ML AMP ONE (20:14)
[2024-09-27] MEDS: fentaNYL citrate PF 100 MCG/2 ML VIAL EPI STA (20:14)
[2024-09-27] MEDS: OXYTOCIN 30 UNITS/NSS 30 UNITS/500 ML BAG IV SCH (20:15)
[2024-09-27] MEDS: DOCUSATE SODIUM 100 MG CAP PO SCH (21:44)
[2024-09-28] MEDS: IBUPROFEN 600 MG TAB PO PRN (02:19)
--- NOTE | 2024-09-28 05:11 | Obstetrical Progress Note ---
Date of Service September 28, 2024 Assessment & Plan (1) Chronic hypertension affecting : (2) Gestational diabetes mellitus (GDM) affecting , antepartum: (3) Encounter for care and examination after delivery: Plan Encourage ambulation Encourage breast feeding Monitor BP Pain meds as needed Anticipate DC to home on 09/29/24 Admission and Anticipated Discharge Date Admission Date: September 27, 2024 Supervising Physician Co-Signing Physician Notes Resident Physician Supervision Note: I interviewed and examined the patient. Discussed with Dr. Barrios and agree with findings and plan as documented in the note. Any exceptions or clarifications are listed here: PP1 s/p , doing well. Continue routine care Documented By: Shadia Bhat MD Subjective Pt is 33 yo post- day 1 s/p at 39w. complicated by GDM and cHTN Ambulation:In room Voiding:voiding normally Passing gas: no BM: no Diet tolerance:regular diet Lochia:bloody, no clots Feeding type: breast Current pain level: 0-3 /10 improved with ibuprofen Resting comfortably this morning in NAD. Denies ELY, CP, SOB, N/V/D, LE pain/swelling. Review of Systems Review of Systems: As per HPI Physical Exam Constitutional: WD/WN, vitals as above Respiratory: normal respiratory effort, lungs clear to auscultation Cardiovascular: RRR, no murmur, no edema Gastrointestinal (Abdomen): normal bowel sounds, soft, nontender, no hepatosplenomegaly Uterine fundus firm and at 1 cm below umbilicus Neurologic: PERRL, EOMI, accommodation nl, no face palsy, no dysarthria Moving all 4 extremities on command Psychiatric: A+Ox3, euthymic affect Results & Data Vital Signs (Past 12 Hours) Vital Signs Temp Pulse Pulse Resp BP BP Pulse Ox 09/28/24 00:30 36.5 C 82 16 137/82 99 09/27/24 22:00 36.5 C 81 18 124/80 97 09/27/24 21:25 83 113/66 09/27/24 20:13 84 18 110/64 09/27/24 20:13 84 110/64 09/27/24 19:58 85 110/63 09/27/24 19:43 83 18 114/65 09/27/24 19:43 83 114/65 12/03/24 19:28 80 109/65 09/27/24 19:13 69 18 122/69 09/27/24 19:13 73 111/63 09/27/24 18:58 77 18 122/71 09/27/24 18:58 69 122/69 09/27/24 18:43 77 18 122/71 09/27/24 18:43 77 122/71 09/27/24 18:28 73 18 118/64 09/27/24 18:28 73 118/64 09/27/24 18:13 75 18 131/76 09/27/24 18:13 75 131/76 09/27/24 18:05 106 H 98 09/27/24 18:04 101 H 92 09/27/24 18:00 80 97 09/27/24 17:59 82 127/75 09/27/24 17:55 81 98 09/27/24 17:50 77 98 09/27/24 17:45 79 97 09/27/24 17:43 82 111/64 09/27/24 17:40 74 97 09/27/24 17:35 91 H 97 09/27/24 17:30 18 09/27/24 17:30 82 18 97 09/27/24 17:28 82 106/56 L 09/27/24 17:25 75 98 09/27/24 17:20 74 97 09/27/24 17:15 74 98 09/27/24 17:14 74 116/66 O2 Del Method 09/28/24 00:30 Room Air 09/27/24 22:00 Room Air 09/27/24 21:25 09/27/24 20:13 09/27/24 20:13 09/27/24 19:58 09/27/24 19:43 09/27/24 19:43 09/27/24 19:28 09/27/24 19:13 09/27/24 19:13 09/27/24 18:58 09/27/24 18:58 09/27/24 18:43 09/27/24 18:43 09/27/24 18:28 09/27/24 18:28 09/27/24 18:13 09/27/24 18:13 09/27/24 18:05 09/27/24 18:04 09/27/24 18:00 09/27/24 17:59 09/27/24 17:55 09/27/24 17:50 09/27/24 17:45 09/27/24 17:43 09/27/24 17:40 09/27/24 17:35 09/27/24 17:30 09/27/24 17:30 09/27/24 17:28 09/27/24 17:25 09/27/24 17:20 09/27/24 17:15 09/27/24 17:14 Resident Activity Tracking Resident Involvement: Resident Care Provided Care Provided: Adult [facility] Medicine
[2024-09-28] MEDS: PRENATAL VITAMIN 1 TAB PO SCH (08:34)
[2024-09-28] MEDS: FERROUS SULFATE 325 MG TAB PO SCH (08:34)
[2024-09-28 12:39] VITALS: PULSE 76; RESP 18; O2SAT 97
[2024-09-28 15:49] VITALS: BP 128/84; TEMP 97.9
[2024-09-28] MEDS ORDERED: bisacodyL 5 MG TABEC PO SCH (20:00)
== END 2024-09-28 19:40 | disposition home or self-care (01) | DRG 807 ==
LOC: 4S1 07:30 → 4E2 21:51